=== PATIENT | female | born 1970 | race Caucasian/White ===

== ENCOUNTER 2017-10-18 09:56 | Emergency (ER) | payer OTHER ==
[~2017-10-18] VITALS: Ht 160 cm; Wt 102.1 kg
[2017-10-18] MEDS ORDERED: METFORMIN HCL500 MG (10:37)
== END 2017-10-18 13:58 | disposition home or self-care (01) ==
LOC: ER 09:56
DX: N95.0 Postmenopausal bleeding (principal)